=== PATIENT | male | born 1965 | race Caucasian/White ===

== ENCOUNTER 2021-05-07 13:00 | Outpatient (RCR) | payer OTHER | END 2021-06-22 | disposition home or self-care (01) | LOC: PT.GENESIS | DX: Z01.818 Encounter for other preprocedural examination (principal); M25.561 Pain in right knee; M25.562 Pain in left knee; Z73.6 Limitation of activities due to disability | CPT/HCPCS: G0283-GP ==

== ENCOUNTER → 2021-11-20 | Outpatient (RCR) | payer OTHER | END | disposition home or self-care (01) | LOC: PT.GENESIS | DX: M17.12 Unilateral primary osteoarthritis, left knee (principal) ==

== ENCOUNTER 2021-12-19 13:00 | Outpatient (RCR) | payer OTHER | END 2021-12-20 | disposition still patient (30) | LOC: PT.GENESIS | DX: M17.12 Unilateral primary osteoarthritis, left knee (principal) ==

== ENCOUNTER 2022-07-10 13:00 | Outpatient (RCR) | payer OTHER | END 2022-07-22 16:06 | disposition home or self-care (01) | LOC: PT.GENESIS 13:00 | DX: Z96.652 Presence of left artificial knee joint (principal) ==